=== PATIENT | female | born 1985 | race Caucasian/White ===

== ENCOUNTER 2016-06-30 13:36 | Emergency (ER) | payer MEDICAID ==
[~2016-06-30] VITALS: Ht 165.1 cm; Wt 78.5 kg
[~2016-06-30 13:36] MED LIST: ASPI-973 PO; RES15 PO
[2016-06-30 13:40] VITALS: BP 123/84; PULSE 94; RESP 18; O2SAT 97
[2016-06-30 14:32] LABS: BASOPHILS % (AUTO) 0.5 % (0-3); MONOCYTES % (AUTO) 12.3 % (4-12); Mean Corpuscular Hemoglobin 29.6 pg (27.0-35.0); NEUTROPHILS % (AUTO) 64.2 % (40-74); Platelet Count 336 bil/L (150-400)
--- NOTE | 2016-06-30 14:35 | ED.REPORT ---
HPI-Abd Pain F Under 40 Date of Service Jun 30, 2016 ED Provider: Doc,Ed MD The patient is a 31 year old female who presents to the emergency department complaining of epigastric pain that began 4 days ago. Her pain radiates through to her back and up into her chest. Her pain has been constant since onset and she describes it as an "explosion." She has also experienced nausea, vomiting, decreased PO intake, and diaphoresis. Her symptoms are exacerbated with eating. She has tried Pepto Bismol with no relief. She also took one of her brothers pain pills but this did not help her symptoms. She has not had similar symptoms in the past. She denies fever, chills, diarrhea, hematemesis, hematochezia, bloody/tarry stools, shortness of breath, cough, dysuria or hematuria. She denies previous abdominal surgeries. She smokes tobacco daily. She is not currently taking any of her previously prescribed medications. She has not taken any of her medications for several months. 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 She has not had a prescription for any pain medications for at least 1 year. Nursing Notes Stated Complaint: INTERNAL PAIN Chief Complaint: Female Abdominal Pain Nursing Notes Reviewed: Yes Allergies: Coded Allergies: No Known Allergies (Verified Allergy, Unknown, 06/14/15) Scheduled Aspirin (Aspirin) 81 Mg Tablet 81 MG PO DAILY Scheduled PRN Temazepam (Temazepam) 15 Mg Capsule 15 MG PO HS PRN PRN For Insomnia General Time Seen by MD: 14:34 Chief Complaint Abdominal pain Hx Obtained From: Patient Arrived By: Walk-in Sudden in Onset?: No Onset Occurred: 4 days ago Symptom Duration: Since onset Progression since Onset: Constant Location: : Epigastric Quality: Painful Radiation: : Back Severity: Current: Moderate Severity: Maximum: Moderate Recent Healthcare: No recent doctor visit, No recent hospitalization Similar Sx Previous: No Past Medical History Past Medical History 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 Alcohol Use: Denies alcohol use Drug Use: Denies drug use Other Social History: Good social support, , Local resident Ambulatory Status Independent Review of Systems Constitutional: Denies: Chills, Fever Respiratory: Denies: Non-productive cough, Shortness of breath Cardiovascular: Reports: Chest pain GI: Reports: Abdominal pain, Nausea, Vomiting, Denies: Bloody/tarry stool, Diarrhea, Hematemesis, Hematochezia Female: Denies: Dysuria, Hematuria, Urinary frequency, Urinary urgency, Urination decreased, Urination increased Musculoskeletal: Reports: Back pain Complete sys rev & neg: except as marked. Skin: Reports Diaphoresis Physical Exam Initial Vital Signs Vital Signs (First) Date Time Temp Pulse Resp B/P Pulse Ox O2 Delivery O2 Flow Rate FiO2 06/30/16 13:40 36.2 94 18 123/84 97 Room Air Initial VS: Reviewed Head / Eyes: Atraumatic, Normocephalic, PERRL ENT: Mucous membranes moist, Conjunctiva normal, No scleral icterus Neck: Supple, Non-tender, Full range of motion Lymphatic: No lymphadenopathy Extremities: Vascular intact, Neuro intact, No swelling, No tenderness Skin: Warm, Dry, No cyanosis Neurologic: Alert, Oriented, Nonfocal Psychiatric: Mood/affect normal, Behavior normal, Normal thought content General/Constitutional: Awake, Alert, Cooperative Respiratory / Chest: Atraumatic, Breath sounds NL, Breath sounds = bilat, No respiratory distress, No rales, No rhonchi, No wheezing Cardiovascular: Heart rate NL, Regular rhythm, Heart sounds NL, No murmurs, No rubs, Peripheral circulation NL Abdomen: Soft, No guarding, No rebound, BS normoactive, No distention, No hernia, No palpable mass, No pulsatile mass Tenderness/Guarding/Rebound: Positive: Tender LUQ... (moderate), Tender RLQ... (Mild), Tender epigastric (worse) Back: Atraumatic, Full range of motion, Non-tender, No midline vertebral tend Interpretation & Diagnostics Interpretation & Diagnostics: Urine : negative Urine dip: positive for leukocytes, blood, hemoglobin Lab Results Interpretation Result Diagram: 06/30/16 1420 06/30/16 1420 Test 06/30/16 14:20 06/30/16 14:33 White Blood Count 8.3th/mm3 (3.8-10.1) Red Blood Count 4.63mil/mm3 (3.90-5.20) Hemoglobin 13.7g/dL (12.0-15.6) Hematocrit 41.2% (35.0-46.0) Mean Corpuscular Volume 89.0fL (81-100) Mean Corpuscular Hemoglobin 29.6pg (27.0-35.0) Mean Corpuscular Hemoglobin Concent 33.3% (32.0-37.0) Red Cell Distribution Width 14.1% (12.3-15.4) Platelet Count 336bil/L (150-400) Neutrophils (%) (Auto) 64.2% (40-74) Lymphocytes (%) (Auto) 18.9% (14-46) Monocytes (%) (Auto) 12.3% (4-12) Eosinophils (%) (Auto) 4.0% (0-5) Basophils (%) (Auto) 0.5% (0-3) Sodium Level 138mEq/L (134-144) Potassium Level 4.1mEq/L (3.5-5.2) Chloride Level 101mEq/L (97-108) Carbon Dioxide Level 24mmol/L (18-29) Blood Urea Nitrogen 8mg/dL (6-20) Creatinine 0.64mg/dL (0.57-1.00) Estimat Glomerular Filtration Rate 153mL/min (>59) Glucose Level 101mg/dL (60-99) Calcium Level 9.2mg/dL (8.5-10.1) Magnesium Level 2.0mg/dL (1.6-2.6) Total Bilirubin 0.4mg/dL (0.0-1.2) Aspartate Amino Transf (AST/SGOT) 16U/L (0-50) Alanine Aminotransferase (ALT/SGPT) 17U/L (0-32) Alkaline Phosphatase 59U/L (25-150) Total Protein 6.4g/dL (6.4-8.4) Albumin 4.1g/dL (3.4-5.0) Lipase 19U/L (13-60) Urine Color Straw (YELLOW) Urine Appearance Hazy (CLEAR,HAZY) Urine pH 7.0 (5.0-8.0) Urine Specific [place] 1.010 (1.003-1.035) Urine Protein Negativemg/dL (NEG,TRACE) Urine Glucose (UA) Negativemg/dL (NEGATIVE) Urine Ketones Negativemg/dL (NEGATIVE) Urine Occult Blood Trace (NEGATIVE) Urine Nitrite Negative (NEGATIVE) Urine Bilirubin Negative (NEGATIVE) Urine Urobilinogen Normalmg/dL (NORMAL) Urine Leukocyte Esterase Trace (NEGATIVE) Urine RBC 0-2/hpf (0-2) Urine WBC 0-5/hpf (0-5) Urine Epithelial Cells Occasional/hpf (NONE-MOD) Urine Crystals None seen (NONE SEEN) Urine Bacteria Moderate/hpf (NONE-FEW) Urine Hyaline Casts None/lpf (NONE) Urine Granular Casts None seen (NONE SEEN) Urine Waxy Casts None seen (NONE SEEN) Urine Red Blood Cell Casts None seen (NONE SEEN) Urine White Blood Cell Casts None seen (NONE SEEN) Urine Mucus None seen (None Seen) Urine Trichomonas None seen (NONE SEEN) Urine Yeast None (NONE SEEN) Urinalysis Comment None Urine Culture Reflexed Indicated ECG Interpretation ECG Interpretation: Sinus rhythm with a rate of 69 Time: 14:39 Interpreted by: ED physician Re-Eval/Medical Decision Med Decision/Clinical Course Med Decision/Clinical Course: [place] prescription monitoring program shows no controlled substance prescriptions in the past 12 months. Source of Hx: Old records, Family Re-Evaluation/Progress #1: Time of Eval: 14:44 Re-Evaluation/Progress Note: Tobacco cessation provided at this time. Re-Evaluation/Progress #2: Time of Eval: 15:18 Re-Evaluation/Progress Note: Rechecked the patient. Re-Evaluation/Progress #3: Time of Eval: 15:30 Re-Evaluation/Progress Note: Discussed plan for discharge with outpatient followup tomorrow. All questions were addressed. Consultation : Consulted With: Primary care physician Requested Call at: 15:28 Note: Attempted to contact Dr. Jose, her PCP but was unable to. Instead I have scheduled her an appointment with him tomorrow at 1300. Counseled Regarding: Diagnosis, Lab results, Need for follow-up, When/why to return to ED Discharge & Departure Primary Impression: Epigastric abdominal pain Disposition: Home Discharge Condition All VS Reviewed: Yes Condition: Stable Patient Instructions: Acute Abdominal Pain (ED) Additional Instructions: Thank you for entrusting us with your care today. Your labs and exam findings are reassuring. We did not find an acutely dangerous cause for your pain today. I was able to schedule you and appointment with Dr. Jose tomorrow at 1 PM. Please return to the emergency department for any new or concerning symptoms. In the meantime, I recommend Tylenol 1000 mg every 6 hours as needed for pain. You can use Vicodin (hydrocodone/APAP) sparingly until you see Dr. Jose tomorrow. Use ondansetron as needed for nausea. Referrals: KARINA JOSE MD (PCP) Scribe Attestation Portions of this note were transcribed by Eladia Miranda. I, Dr. Rao personally performed the history, physical exam and medical decision-making; I reviewed and confirmed the accuracy of the information in the transcribed note. Signed by:Danielle Vallejo, 06/30/2016and 1535. copies to: KARINA JOSE MD, Kirk H MD Jun 30, 2016 14:34 Eladia Miranda Jun 30, 2016 14:51
[2016-06-30] MEDS ORDERED: Ondansetron 2 mg/mL 2 mL Inj IVPUSH ONE (14:55)
[2016-06-30] MEDS ORDERED: Acetaminophen IV 1,000 MG in IV Premix 1 EACH IV ONE (14:55)
[2016-06-30] MEDS ORDERED: Pantoprazole 4 mg/mL 10 mL Inj IVPUSH ONE (14:55)
[2016-06-30 15:09] LABS: APPEARANCE,URINE HAZY (CLEAR,HAZY); COLOR,URINE STRAW (YELLOW); OCCULT BLOOD,URINE TRACE (NEGATIVE); UROBILINOGEN,URINE NORMAL (NORMAL)
[2016-06-30] MEDS ORDERED: HYDR-4003 PO (15:45)
[2016-06-30] MEDS ORDERED: ACET-171 PO (15:45)
[2016-06-30] MEDS ORDERED: ONDA4TAB9 PO (15:53)
[2016-06-30] MEDS ORDERED: HYDROcodone-APAP 10-325 mg PO ONE (15:55)
[2016-06-30 15:59] VITALS: BP 102/68; PULSE 59; RESP 16; O2SAT 98
== END 2016-06-30 15:59 | disposition home or self-care (01) ==
LOC: SED 13:36
DX: R10.13 Epigastric pain (principal); R11.2 Nausea with vomiting, unspecified; R61 Generalized hyperhidrosis; R63.8 Other symptoms and signs concerning food and fluid intake; M06.9 Rheumatoid arthritis, unspecified; F17.200 Nicotine dependence, unspecified, uncomplicated; Z86.73 Personal history of transient ischemic attack (TIA), and cerebral infarction without residual deficits; Z79.82 Long term (current) use of aspirin
CPT/HCPCS: 36415; 80053; 81000; 81025; 83690; 83735; 85025; 87086; 87088; 93005; 96374; 96375; 99285; J0131; J2405

== ENCOUNTER 2016-11-19 11:09 | Emergency (ER) | payer MEDICAID ==
[~2016-11-19] VITALS: Ht 165.1 cm; Wt 72.7 kg
[~2016-11-19 11:09] MED LIST changes: +ACET-171 PO; +HYDR-4003 PO; +ONDA4TAB9 PO
[2016-11-19 11:11] VITALS: BP 134/78; PULSE 87; RESP 14; O2SAT 98
--- NOTE | 2016-11-19 11:37 | ED.REPORT ---
HPI-Abd Pain F Under 40 Date of Service Nov 19, 2016 ED Provider: History of Present Illness: started this am, felt she was tired yesterday. burning at the clitoris with urination, lower abd pain and lower back pain. whole body aches. Seen at [facility][note 3]Dr. person is primary care. no intercourse for 8 months. no nausea or vomiting. saw primary care a few months ago. 03/17. denies rash, no itching Nursing Notes Stated Complaint: INTERNAL PAIN Chief Complaint: Female Abdominal Pain Nursing Notes Reviewed: Yes Allergies: Coded Allergies: No Known Allergies (Verified Allergy, Unknown, 11/19/16) Scheduled Aspirin (Aspirin) 81 Mg Tablet 81 MG PO DAILY Scheduled PRN Acetaminophen (Acetaminophen) 500 Mg Tablet 1,000 MG PO Q6H PRN PRN For Pain Be careful not to take more than 4000 mg of Tylenol in any 24-hour period Hydrocodone-Acetaminophen 5-325 mg (Hydrocodone-Acetaminophen 5-325 mg) 1 Each Tablet 1-2 TABLET PO Q4H PRN PRN For Pain Ondansetron ODT (Zofran ODT) 4 Mg Tablet 4 MG PO Q4H PRN PRN For Nausea Temazepam (Temazepam) 15 Mg Capsule 15 MG PO HS PRN PRN For Insomnia General Time Seen by MD: 11:36 Chief Complaint Abdominal pain (lower), Pelvic pain Hx Obtained From: Patient Sudden in Onset?: No Onset Occurred: 17 - 20 hours ago Symptom Duration: Since onset Location: : Suprapubic Past Medical History Past Medical History 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 Alcohol Use: Denies alcohol use Drug Use: Denies drug use Other Social History: Good social support, Local resident Occupation lives with children 7,5 and 2. goes to school, no work at this time. Ambulatory Status Independent Review of Systems Basic Review of Systems Eyes: Vision NL, No discharge ENT: Hearing NL, No pain, No nasal congestion, No pharyngeal pain Hematologic: No bleeding, No bruising Endocrine: No cold intolerance, No heat intolerance, No weight gain, No weight loss Skin: No bruising, No rash, No itch Allergy / Immune: No allergy Neurologic: NL mental status, No weakness, No numbness Psychiatric: Normal thought content Physical Exam Initial Vital Signs Vital Signs (First) Date Time Temp Pulse Resp B/P Pulse Ox O2 Delivery O2 Flow Rate FiO2 11/19/16 11:11 36.4 87 14 134/78 98 Room Air Initial VS: Reviewed, Vital signs normal Head / Eyes: Atraumatic, Normocephalic, PERRL ENT: Mucous membranes moist, Conjunctiva normal, No scleral icterus Neck: Supple, Non-tender, Full range of motion Lymphatic: No lymphadenopathy Extremities: Vascular intact, Neuro intact, No swelling, No tenderness Skin: Warm, Dry, No cyanosis Neurologic: Alert, Oriented, Nonfocal Psychiatric: Mood/affect normal, Behavior normal, Normal thought content General/Constitutional: Awake, Alert, No acute distress, Well appearing, Well developed, Well hydrated, Well nourished, Cooperative, Not toxic appearing Respiratory / Chest: Atraumatic, Breath sounds NL, Breath sounds = bilat, No respiratory distress Cardiovascular: Heart rate NL, Regular rhythm, Heart sounds NL, No gallop Abdomen: Atraumatic, Soft Tenderness/Guarding/Rebound: Positive: Tender suprapubic Back: Atraumatic, Inspection NL Head / Eyes: Atraumatic, Normocephalic, PERRL, EOMI ENT: Atraumatic, Airway patent, Mucous membranes moist Female Genitourinary: External genitalia NL, No bleeding, No discharge Interpretation & Diagnostics Lab Results Interpretation Result Diagram: 11/19/16 1155 11/19/16 1155 Test 11/19/16 11:30 11/19/16 11:55 Urine Color Yellow (YELLOW) Urine Appearance Cloudy (CLEAR,HAZY) Urine pH 6.5 (5.0-8.0) Urine Specific [place] 1.025 (1.003-1.035) Urine Protein 100mg/dL (NEG,TRACE) Urine Glucose (UA) Negativemg/dL (NEGATIVE) Urine Ketones Negativemg/dL (NEGATIVE) Urine Occult Blood Large (NEGATIVE) Urine Nitrite Positive (NEGATIVE) Urine Bilirubin Negative (NEGATIVE) Urine Urobilinogen Normalmg/dL (NORMAL) Urine Leukocyte Esterase Small (NEGATIVE) Urine RBC 11-50/hpf (0-2) Urine WBC 11-50/hpf (0-5) Urine Epithelial Cells Occasional/hpf (NONE-MOD) Urine Crystals None seen (NONE SEEN) Urine Bacteria Many/hpf (NONE-FEW) Urine Hyaline Casts None/lpf (NONE) Urine Granular Casts None seen (NONE SEEN) Urine Waxy Casts None seen (NONE SEEN) Urine Red Blood Cell Casts None seen (NONE SEEN) Urine White Blood Cell Casts None seen (NONE SEEN) Urine Mucus Present (None Seen) Urine Trichomonas None seen (NONE SEEN) Urine Yeast None (NONE SEEN) Urinalysis Comment None Urine Culture Reflexed Indicated White Blood Count 14.3th/mm3 (3.8-10.1) Red Blood Count 4.37mil/mm3 (3.90-5.20) Hemoglobin 13.1g/dL (12.0-15.6) Hematocrit 39.9% (35.0-46.0) Mean Corpuscular Volume 91.3fL (81-100) Mean Corpuscular Hemoglobin 30.0pg (27.0-35.0) Mean Corpuscular Hemoglobin Concent 32.8% (32.0-37.0) Red Cell Distribution Width 15.0% (12.3-15.4) Platelet Count 303bil/L (150-400) Neutrophils (%) (Auto) 81.3% (40-74) Lymphocytes (%) (Auto) 9.4% (14-46) Monocytes (%) (Auto) 8.0% (4-12) Eosinophils (%) (Auto) 0.8% (0-5) Basophils (%) (Auto) 0.2% (0-3) Hold Blue Top Tube Received (Received) Sodium Level 135mEq/L (134-144) Potassium Level 3.5mEq/L (3.5-5.2) Chloride Level 100mEq/L (97-108) Carbon Dioxide Level 23mmol/L (18-29) Blood Urea Nitrogen 14mg/dL (6-20) Creatinine 0.71mg/dL (0.57-1.00) Estimat Glomerular Filtration Rate 136mL/min (>59) Glucose Level 134mg/dL (60-99) Lactic Acid Level 0.8mmol/L (0.4-2.0) Calcium Level 9.3mg/dL (8.5-10.1) Lab Results Interpretation: urine with positive nitrates Re-Eval/Medical Decision Med Decision/Clinical Course Med Decision/Clinical Course: 31 year old female presents for evualation of lower abd pain with pain in clitoritis. Exam indicates lower pelvic pain. Patient treated with rocephin IV and given fluids and toradol. Patient with good response. No sign of Kidney infection, urinary retention or ectopic . Discharge & Departure Primary Impression: UTI (urinary tract infection) Urinary tract infection type: acute cystitis Hematuria presence: with hematuria Qualified Code: N30.01 - Acute cystitis with hematuria Disposition: Home Patient Instructions: Urinary Tract Infection in Women (ED) Additional Instructions: Your urine shows clear signs of infection. Need to push fluids. You received a dose of antibiotics in the ER. Start bactrim in the am and pm. Get 2 doses in today. Use lidocaine to the vaginal area for discomfort. Use pyridium 3 times a day for 2 days to help with discomfort. Also a small amount of hydrocodone will be provided. Use for extreme discomfort. Please follow with primary care for a repeat urine in 14 days. I am sorry this is happening. Referrals: KARINA JOSE MD (PCP) EDSupervising Provider for APC: Bruce Sr MD copies to: KARINA JOSE MD, Sue ARNP Nov 19, 2016 11:37
[2016-11-19] MEDS ORDERED: 0.9% Sodium Chloride 1,000 ML IV ONE (11:50)
[2016-11-19] MEDS ORDERED: cefTRIAXone Inj 2,000 MG in Dextrose 5% Minibag Plus 50 ML IV ONE (11:50)
[2016-11-19] MEDS ORDERED: Lidocaine 2% 5 mL Topical Jelly MUC_MEMBRM ONE (11:50)
[2016-11-19 12:19] VITALS: BP 125/58; PULSE 71; RESP 20; O2SAT 98
[2016-11-19 12:19] LABS: APPEARANCE,URINE CLOUDY (CLEAR,HAZY); COLOR,URINE YELLOW (YELLOW); OCCULT BLOOD,URINE LARGE (NEGATIVE); PH,URINE 6.5 (5.0-8.0); UROBILINOGEN,URINE NORMAL (NORMAL)
[2016-11-19 12:30] LABS: BASOPHILS % (AUTO) 0.2 % (0-3); EOSINOPHILS % (AUTO) 0.8 % (0-5); Mean Corpuscular Volume 91.3 fL (81-100); NEUTROPHILS % (AUTO) 81.3 % (40-74); Platelet Count 303 bil/L (150-400)
[2016-11-19 13:00] VITALS: BP 125/98; PULSE 75; RESP 22; O2SAT 98
[2016-11-19 13:46] VITALS: BP 120/63; PULSE 73; RESP 28; O2SAT 98
== END 2016-11-19 13:44 | disposition home or self-care (01) ==
LOC: SED 11:09
DX: N30.01 Acute cystitis with hematuria (principal); F17.200 Nicotine dependence, unspecified, uncomplicated; F43.10 Post-traumatic stress disorder, unspecified; Z79.82 Long term (current) use of aspirin
CPT/HCPCS: 36415; 80048; 81000; 81025; 83605; 85025; 87086; 87088; 87186; 96361; 96365; 96375; 99285; J0696; J1885; J7030